=== PATIENT | female | born 1985 | race Asian ===

== ENCOUNTER 2017-11-13 03:37 | Emergency (ER) | payer OTHER ==
[~2017-11-13] VITALS: Ht 157.5 cm; Wt 57.6 kg
== END 2017-11-13 14:31 | disposition home or self-care (01) ==
LOC: ER 03:37
DX: S00.83XA Contusion of other part of head, initial encounter (principal); W18.39XA Other fall on same level, initial encounter; Y93.89 Activity, other specified; Y92.89 Other specified places as the place of occurrence of the external cause; Y99.8 Other external cause status

== ENCOUNTER 2018-10-30 05:13 | Emergency (ER) | payer OTHER ==
[~2018-10-30] VITALS: Ht 167.6 cm; Wt 55.8 kg
== END 2018-10-30 10:26 | disposition home or self-care (01) ==
LOC: ER 05:13
DX: N39.0 Urinary tract infection, site not specified (principal)